=== PATIENT | female | born 1985 | race Caucasian/White ===

== ENCOUNTER 2020-08-06 05:19 | Emergency (ER) | payer SELFPAY ==
[~2020-08-06] VITALS: Ht 162.6 cm; Wt 86.3 kg
[2020-08-06] MEDS ORDERED: MUPIROCIN 2 % TOPICAL CREAM 30GM TUBE. TP ONE (06:15)
--- NOTE | 2020-08-06 06:17 | PHYS DOC ---
Past Medical History Past Medical History: No Pertinent History (AMBER NOLEN DO) Past Surgical History: No Surgical History (AMBER NOLEN DO) Smoking Status: Current Every Day Smoker Alcohol Use: None Drug Use: Marijuana, Methamphetamine (AMBER NOLEN DO) General Adult EDM: Chief Complaint: WOUND CHECK HPI: HPI: Patient is a 35 year old female presents with report of bilateral feet wounds which have been ongoing for the past 3 weeks. Patient reports he developed while she was in "shelter". Patient reports history of having some "neck cellulitis "for which she was given antibiotics. Reports sores had continued despite being on antibiotics. Denies known trauma. Denies fever or chills. Patient reports wounds are painful. Reports she has been trying to put ointment on them without significant improvement. Patient reports pain became more severe today and therefore presents to the ER for evaluation. Patient reports she currently does not have a family physician. Patient does reports IV drug abuse. (AMBER NOLEN DO) Review of Systems: Review of Systems: Constitutional: Denies fever or chills Eyes: Denies redness or eye pain HENT: Denies nasal congestion or sore throat Respiratory: Denies cough or shortness of breath Cardiovascular: Denies chest pain or palpitations GI: Denies abdominal pain, nausea, or vomiting : Denies dysuria or hematuria Musculoskeletal: Denies back pain; reports feet pain Integument: Denies rash; reports feet wounds/ulcerations Neurologic: Denies headache, focal weakness or sensory changes Complete systems were reviewed and found to be within normal limits, except as documented in this note. (AMBER NOLEN DO) Heart Score: C/O Chest Pain: N/A (AMBER NOLEN DO) Current Medications: Current Medications Medications (Trade) Dose Ordered Sig/Kenisha Start Time Stop Time Status Last Admin Dose Admin Mupirocin (Bactroban) 1 roseanne 1X ONCE 08/06/20 06:15 08/06/20 06:16 (AMEBR NOLEN DO) Allergies: Allergies: Allergies Coded Allergies Type Severity Reaction Last Updated Verified No Known Drug Allergies 08/06/20 No (AMBER NOLEN DO) Physical Exam: PE: Constitutional: Well developed, well nourished, uncomfortable, non-toxic appearance HENT: Normocephalic, atraumatic Eyes: Conjunctiva normal, no discharge Neck: Normal range of motion, no tenderness, supple Lungs & Thorax: No respiratory distress, equal chest rise and fall Skin: Warm, dry, no erythema, circular ulcerations to both feet on both dorsal and plantar aspects, some with erythematous base, thick plantar calluses Extremities: Tenderness to lesions of both feet, ROM intact, no edema Neurologic: Alert and oriented X 3, no focal deficits noted Psychologic: Affect normal, judgment normal (AMBER NOLEN DO) Current Patient Data: Vital Signs: Vital Signs Date Time Temp Pulse Resp B/P (MAP) Pulse Ox O2 Delivery O2 Flow Rate FiO2 08/06/20 05:30 98 20 128/78 (95) 99 Room Air (AMBER NOLEN DO) EKG: EKG: [] (AMBER NOLEN DO) Radiology/Procedures: Radiology/Procedures: [] (AMBER NOLEN DO) Radiology/Procedures: IMAGING REPORT Signed PATIENT: LC [facility] ACCOUNT: [id number] : 1985 LOCATION: ER AGE: 35 SEX: F EXAM STATUS: REG ER ORD. PHYSICIAN: AMBER NOLEN DO REASON: Bilateral foot wounds, eval for arterial dysfunction PROCEDURE: DUPLEX LOWER EXTREMITY BILAT Bilateral lower extremity arterial duplex Doppler ultrasound HISTORY: Bilateral foot wounds. Arterial dysfunction. FINDINGS: Right leg: No bulky plaque, thrombus, high-grade stenosis or occlusion evident on grayscale or color Doppler sonography. There are monophasic waveforms with brisk systolic upstrokes throughout the leg with no tardus parvus waveform abnormality evident. Individual flow velocities are described below. Common femoral artery: 155 cm/s. Profunda femoral artery: 94 cm/s. Superficial femoral artery: 166 cm/s proximal, 118 cm/s mid segment, 119 cm/s distal. Popliteal artery: 73 cm/s Posterior tibial artery: 89 cm complex proximal, 107 cm/s distal. Peroneal artery: 80 cm/s. Anterior tibial artery: 82 cm/s. Dorsalis pedis artery: 93 cm/s. Left leg: No bulky plaque, thrombus, high-grade stenosis or occlusion evident on grayscale or color Doppler sonography. There are monophasic waveforms with brisk systolic upstrokes throughout the leg with no tardus parvus waveform abnormality evident. Individual flow velocities are described below. Common femoral artery: 186 cm/s. Profunda femoral artery: 84 cm/s. Superficial femoral artery: 135 cm/s proximal, 140 cm/s mid segment, 108 cm/s distal. Popliteal artery: 93 cm/s. Posterior tibial artery: 91 cm/s proximal, 97 cm/s distal. Peroneal artery: 42 cm/s. Anterior tibial artery: 60 cm/s. Dorsalis pedis artery: 91 cm/s. Impression: No evidence of thrombus, high-grade stenosis or occlusion of the leg arteries. Electronically signed by: Maricruz Morales MD (08/06/2020 7:24 AM) [id number] DICTATED and SIGNED BY: MARICRUZ MORALES MD DATE: 08/06/20 [id number] (CINDY LAUREANO DO) Course & Med Decision Making: Course & Med Decision Making Pertinent Labs and Imaging studies reviewed. (See chart for details) Patient presents with open lesions to bilateral feet. Concern for possible arterial dysfunction. Afebrile. Labs obtained and pending. Pain addressed. Arterial Dopplers pending. [id number]-signout given to Dr. Laureano for further evaluation and final disposition. Discussed current findings and plan with patient, who acknowledges understanding and agreement. (AMBER NOLEN DO) Course & Med Decision Making I evaluated patient by myself. Patient has an IV drug user and injects methamphetamine in her neck and both forearm, denies any LE IVDU. Patient reports waxing and waning ulcers to both feet since March. Was currently released from shelter after serving a 40-day sentence. States lesions are very painful and come and go. No associated fever, weakness, swelling, mucous membrane ulcers or lesions, hematuria, heart murmur or syncope. On physical exam there are multiple ulcers with no necrotic lesions and localized erythema surrounding ulcers. Nail congolese very thick (from [employer]) - has "used for years." No oral bleeding ongoing petechiae or lesions over hands. Patient well-appearing. DP/PT pulses intact. No evidence of arterial occlusion on PE and duplex. Endocarditis on differential but physical exam is not consistent with [place] lesions, splinter hemorrhages or Osler nodes. There is no murmur on physical exam. Will treat for infection (mupirocin give in ed), ddx also includes ulcerative disorder vs PVD. Patient has no primary care physician. Will discharge home with strict ED return precautions were given for syncope, fever, blurry vision, weight gain or difficulties breathing. Encouraged urgent outpatient follow-up with PMD to establish care and podiatry for definitive management. Life-threatening processes were considered but are low suspicion at this time, given history, physical exam and ED workup. Pt was educated on all prescription medications and adverse effects. All patient's questions were answered and pt was stable at time of discharge. Life/limb-threatening differential includes but is not limited to, trauma (fracture, dislocation, laceration, compartment syndrome, tendon or ligament injury), neurovascular injury or deficitcva/tia, infection (osteomyelitis, abscess, cellulitis, septic arthritis, necrotizing fasciitis), deep vein thromb osis, renal/cardiac/liver disease, medication adverse effect, lymphedema/anasarca, vascular insufficiency or malignancy, I spoken with the patient and her caregivers. I explained the patient's condition, diagnoses and treatment plan based on the information available to me at this time. I have answered the patient and her caregiver's questions and addressed any concerns. The patient and her caregivers have a good understanding of patient's diagnosis, condition and treatment plan as can be expected at this point. Vital signs have been stable. Patient's condition is stable and appropriate for discharge from the emergency department. Patient will pursue further outpatient evaluation with primary care physician or other designated or consulting physician as outlined in the discharge instructions. The patient and/or caregivers are agreeable to this plan of care and follow-up instructions have been explained in detail. The patient and/or caregivers have received these instructions in written form and have expressed an understanding of the discharge instructions. The patient and/or caregivers are aware that any significant change of condition or worsening of symptoms should prompt immediate return to this or the closest emergency department or call to 911. (CINDY LAUREANO DO) Luanne Disclaimer: Luanne Disclaimer: This electronic medical record was generated, in whole or in part, using a voice recognition dictation system. (AMBER NOLEN DO) Departure Departure Impression: Primary Impression: Wound, open, foot Qualified Codes: S91.309A - Unspecified open wound, unspecified foot, initial encounter Disposition: 01 DC HOME SELF CARE/HOMELESS Condition: STABLE Referrals: AMBER GRECO MD Follow-up in 24 to 48 hours FOLLOW UP WITH FAMILY MEDICINE: Family Medicine Address: [address] [facility], [place] [facility] [address] [place] [address] Patient Instructions: Skin Infections, Venous Stasis and Chronic Venous Insufficiency Additional Instructions: FOLLOW UP WITH PODIATRY: within 1 week Podiatric Surgery Address: [address] [facility], [place] [facility] [address] [place] [address] EMERGENCY DEPARTMENT GENERAL DISCHARGE INSTRUCTIONS Thank you for coming to [facility] Emergency Department (ED) today and trusting us with you care. We trust that you had a positive experience in our Emergency Department. If you wish to speak to the department management, you may call the Director at [phone]. YOUR FOLLOW UP INSTRUCTIONS ARE FOLLOWS: 1. Do you have a private Doctor? If you do not have a private doctor, please ask for a resource list of physicians or clinics that may be able to assist you with follow up care. 2. The Emergency Physicain has interpreted your x-rays. The X-Ray specialist will also review them. If there is a change in the findings, you will be notified in 48 hours when at all possible. 3. A lab test or culture has been done, your results will be reviewed and you will be notified if you need a change in treatment. ADDITIONAL INSTRUCTIONS AND INFORMATION: 1. Your care today has been supervised by a physician who is specially trained in emergency care. Many problems require more than one evaluation for a complete diagnosis and treatment. We recommend that you schedule your follow up appointment as recommended to ensure complete treatment of you illness or injury. If you are unable to obtain follow up care and continue to have a problem, or if your condition worsens, we recommend that you return to the ED. 2. We are not able to safely determine your condition over the phone nor are we able to give sound medical advice over the phone. For these safety reasons, if you call for medical advice we will ask you to come to the ED for further evaluation. 3. If you have any questions regarding these discharge instructions please call the ED at [phone]. SAFETY INFORMATION: In the interest of safety, wellness, and injury prevention; we encourage you to wear your sealbelt, if you smoke; quite smoking, and we encourage family to use a pr otective helmet for bicycling and other sporting events that present an increased risk for head injury. IF YOUR SYMPTOMS WORSEN OR NEW SYMPTOMS DEVELOP, OR YOU HAVE CONCERNS ABOUT YOUR CONDITION; OR IF YOUR CONDITION WORSENS WHILE YOU ARE WAITING FOR YOUR FOLLOW UP APPOINTMENT; EITHER CONTACT YOUR PRIMARY CARE DOCTOR, THE PHYSICIAN WHOSE NAME AND NUMBER YOU WERE GIVEN, OR RETURN TO THE ED IMMEDIATELY. Scripts Clindamycin Hcl (CLINDAMYCIN HCL) 150 Mg Capsule 3 CAP PO TID for 10 Days, #90 CAP take with probiotic Prov: CINDY LAUREANO DO 08/06/20 AMBER NOLEN DO Aug 06, 2020 06:17 CINDY LAUREANO DO Aug 06, 2020 07:47
[2020-08-06] MEDS ORDERED: fentaNYL PF VIAL 100 MCG/2 ML VIAL IV ONE (07:00)
--- NOTE | 2020-08-06 07:27 | RAD ---
Bilateral lower extremity arterial duplex Doppler ultrasound HISTORY: Bilateral foot wounds. Arterial dysfunction. FINDINGS: Right leg: No bulky plaque, thrombus, high-grade stenosis or occlusion evident on grayscale or color Doppler sonography. There are monophasic waveforms with brisk systolic upstrokes throughout the leg w ith no tardus parvus waveform abnormality evident. Individual flow velocities are described below. Common femoral artery: 155 cm/s. Profunda femoral artery: 94 cm/s. Superficial femoral artery: 166 cm/s proximal, 118 cm/s mid segment, 119 cm/s distal. Popliteal artery: 73 cm/s Posterior tibial artery: 89 cm complex proximal, 107 cm/s distal. Peroneal artery: 80 cm/s. Anterior tibial artery: 82 cm/s. Dorsalis pedis artery: 93 cm/s. Left leg: No bulky plaque, thrombus, high-grade stenosis or occlusion evident on grayscale or color D oppler sonography. There are monophasic waveforms with brisk systolic upstrokes throughout the leg wi th no tardus parvus waveform abnormality evident. Individual flow velocities are described below. Common femoral artery: 186 cm/s. Profunda femoral artery: 84 cm/s. Superficial femoral artery: 135 cm/s proximal, 140 cm/s mid segment, 108 cm/s distal. Popliteal artery: 93 cm/s. Posterior tibial artery: 91 cm/s proximal, 97 cm/s distal. Peroneal artery: 42 cm/s. Anterior tibial artery: 60 cm/s. Dorsalis pedis artery: 91 cm/s. Impression: No evidence of thrombus, high-grade stenosis or occlusion of the leg arteries. Electronically signed by: Joel Morales MD (08/06/2020 7:24 AM) [id number]
[2020-08-06 10:49] LABS: BASO # 0.1 x10^3/uL (0.0-0.2); BASO % 1 % (0-3); EOS # 0.5 x10^3/uL (0.0-0.7); EOS % 5 % (0-3); HEMATOCRIT 36.6 % (36.0-47.0); HEMOGLOBIN 11.9 g/dL (12.0-15.5); LYMPH # 2.8 x10^3/uL (1.0-4.8); LYMPH % 26 % (24-48); MEAN CORPUSCULAR HEMOGLOBIN 27 pg (25-35); MEAN CORPUSCULAR HGB CONC 33 g/dL (31-37); MEAN CORPUSCULAR VOLUME 82 fL (79-100); MONO # 0.7 x10^3/uL (0.0-1.1); MONO % 6 % (0-9); NEUT # 6.6 x10^3/uL (1.8-7.7); NEUT % 62 % (31-73); PLATELET COUNT 307 x10^3/uL (140-400); RED BLOOD COUNT 4.44 x10^6/uL (3.50-5.40); RED CELL DISTRIBUTION WIDTH 14.8 % (11.5-14.5); WHITE BLOOD COUNT 10.6 x10^3/uL (4.0-11.0)
[2020-08-06 10:53] LABS: CALCIUM 8.2 mg/dL (8.5-10.1); CREATININE 0.6 mg/dL (0.6-1.0); GFR 113.1; POTASSIUM 4.1 mmol/L (3.5-5.1)
[2020-08-06 10:59] LABS: ALBUMIN 3.2 g/dL (3.4-5.0); ALBUMIN/GLOBULIN RATIO 0.9 (1.0-1.7); MAGNESIUM 2.2 mg/dL (1.8-2.4); TOTAL BILIRUBIN 0.2 mg/dL (0.2-1.0); TOTAL PROTEIN 6.9 g/dL (6.4-8.2)
[2020-08-06 11:00] VITALS: BP 120/74
[2020-08-06 11:04] LABS: PROTHROMBIN TIME PATIENT 12.3 SEC (11.7-14.0)
[2020-08-06] MEDS ORDERED: CLIN150C15 PO (11:15)
== END 2020-08-06 11:32 | disposition home or self-care (01) ==
LOC: ER 05:19
DX: S91.302A Unspecified open wound, left foot, initial encounter (principal); S91.301A Unspecified open wound, right foot, initial encounter; L03.221 Cellulitis of neck; F17.200 Nicotine dependence, unspecified, uncomplicated; F12.90 Cannabis use, unspecified, uncomplicated; F19.90 Other psychoactive substance use, unspecified, uncomplicated; X58.XXXA Exposure to other specified factors, initial encounter; Y93.89 Activity, other specified; Y92.89 Other specified places as the place of occurrence of the external cause; Y99.8 Other external cause status
CPT/HCPCS: 36415; 80053; 83605; 83735; 85025; 85610; 85730; 93925; 99285